=== PATIENT | female | born 1950 ===

== ENCOUNTER 2019-08-31 15:06 | Inpatient (IN) | payer MEDICARE, OTHER ==
[~2019-08-31] VITALS: Ht 177.8 cm; Wt 117.0 kg
--- NOTE | 2019-08-31 15:50 | NUR ---
Direct Admit Note SHAZIA BETANCUR admitted to [facility] unit as a direct admit per MD order. Patient oriented to CARRILLO OWENS RN primary RN, unit, room, bed, and unit policies regarding patient care and visiting hours. Patient weighed by bedscale and encouraged to call if they need something. All questions and concerns addressed, patient verbalized understanding. MD notified of patients arrival and admit orders received.
[2019-08-31 16:00] VITALS: BP 139/71
[2019-08-31] MEDS ORDERED: ONDANSETRON HCL 4 MG/2 ML VIAL IV PRN (16:15)
[2019-08-31] MEDS ORDERED: DEXTROSE (50%) 50ML SYRG IV PRN (16:15)
[2019-08-31] MEDS ORDERED: NITROGLYCERIN 0.4 MG SL TAB SL PRN (16:15)
[2019-08-31] MEDS ORDERED: MORPHINE SULF INJ 2 MG/ML SYRINGE 1ML IV PRN (16:15)
[2019-08-31] MEDS ORDERED: ALUM & MAG HYDROX-SIMETH LIQ(MAALOX) 30 ML PO PRN (16:15)
[2019-08-31 16:54] VITALS: BP 139/71
[2019-08-31] MEDS: ACCU-CHEK COMFORT CURVE STRIP VI SCH ×2 (17:00→22:05)
[2019-08-31] MEDS: InsuLIN REG 1unit/0.01ml Soln (100units/ml) SC SCH ×2 (17:00→22:00)
[2019-08-31 18:07] LABS: Basophils # (auto) 0 10 ^3/uL (0-0.2); Basophils % (auto) 0.4 % (0.0-2.0); Eosinophils # (auto) 0.1 10 ^3/uL (0-0.8); Eosinophils % (auto) 1.4 % (0.0-7.0); Hematocrit 38.2 % (36.0-46.0); Hemoglobin 12.8 g/dL (12.2-16.2); Lymphocytes # (auto) 1.5 10 ^3/uL (0.4-5.4); Lymphocytes % (auto) 24.6 % (10.0-50.0); Mean Corpuscular Hemoglobin 28.6 pg (28.0-32.0); Mean Corpuscular Hgb Conc. 33.5 g/dL (32.0-36.0); Mean Corpuscular Volume 85.4 fL (80.0-100.0); Monocytes # (auto) 0.7 10 ^3/uL (0-1.3); Monocytes % (auto) 10.9 % (0.0-12.0); Neutrophils # (auto) 3.9 10 ^3/uL (1.6-8.6); Neutrophils % (auto) 62.7 % (37.0-80.0); Nucleated Red Blood Cells % 0.1 %; Platelet Count (auto) 143 10^3/uL (140-450); Red Blood Cells 4.48 10^6/uL (4.0-5.20); Red Cell Distribution Width 13.7 % (11.8-14.3); White Blood Cell 6.3 10^3/uL (4.4-10.8)
[2019-08-31 18:25] LABS: Anion Gap 2 (5-15); Blood Urea Nitrogen 13 mg/dL (7-18); Calcium 8.7 mg/dL (8.5-10.1); Carbon Dioxide 28 mmol/L (21-32); Chloride 111 mmol/L (98-107); Glucose 102 mg/dL (74-106); Potassium 4.4 mmol/L (3.5-5.1); Sodium 141 mmol/L (136-145)
[2019-08-31 18:32] LABS: BUN/Creatinine Ratio 17.1; Cholesterol 111 mg/dL (< 200); GFR African American 97 mL/min; GFR Non-African American 80 mL/min; HDL Cholesterol 52 mg/dL (40-59); LDL Cholesterol 53 mg/dL (< 100); Triglycerides 119 mg/dL (< 150)
[2019-08-31] MEDS: D5W/SOD CHL 0.45% 1,000 ML IV SCH (18:58)
--- NOTE | 2019-08-31 20:07 | NUR ---
Call to pharmacy Patient states she is allergic to sulfa antibiotics. Updated allergies. Pharmacist aware.
--- NOTE | 2019-08-31 21:00 | NUR ---
Given report to Deep Martin, to assume the care.
--- NOTE | 2019-08-31 21:00 | NUR ---
ASSUMED CARE FROM RN MICK, PT. AWAKE, ALERT AND ORIENTED, WITH DRESSING ON RT., LEG ELEVATED ON PILLOW, NO C/O PAIN, NO IV, NO TELE MONITOR, IV TO BE INSERTED AND SEND FOR TELE MONITOR, TO CONTINUE PT. CARE, NO SOB
[2019-08-31 21:33] LABS: INR 0.99 (0.9-1.15)
[2019-08-31 21:48] VITALS: BP 126/68
[2019-08-31] MEDS: ATORVASTATIN 20 MG TAB PO SCH (22:04)
[2019-08-31] MEDS: HYDROcodone-ACET 5/325MG TAB PO PRN (22:05)
[2019-08-31] MEDS ORDERED: ceFAZolin 1GM/50ML 50 ML IV ONE (22:45)
[2019-09-01] MEDS: HYDROcodone-ACET 5/325MG TAB PO PRN ×4 (02:04→20:05)
[2019-09-01 05:00] VITALS: BP 120/59
[2019-09-01] MEDS ORDERED: ceFAZolin 1GM/50ML 50 ML IV SCH (06:00)
[2019-09-01] MEDS: InsuLIN REG 1unit/0.01ml Soln (100units/ml) SC SCH ×4 (06:02→21:01)
[2019-09-01] MEDS: ACCU-CHEK COMFORT CURVE STRIP VI SCH ×4 (06:02→21:02)
[2019-09-01 06:34] LABS: Basophils # (auto) 0 10 ^3/uL (0-0.2); Basophils % (auto) 0.5 % (0.0-2.0); Eosinophils # (auto) 0.1 10 ^3/uL (0-0.8); Eosinophils % (auto) 2.4 % (0.0-7.0); Hematocrit 36.5 % (36.0-46.0); Hemoglobin 12.4 g/dL (12.2-16.2); Lymphocytes # (auto) 1.6 10 ^3/uL (0.4-5.4); Mean Corpuscular Hemoglobin 28.5 pg (28.0-32.0); Mean Corpuscular Volume 83.8 fL (80.0-100.0); Monocytes # (auto) 0.7 10 ^3/uL (0-1.3); Monocytes % (auto) 12.1 % (0.0-12.0); Neutrophils # (auto) 3.4 10 ^3/uL (1.6-8.6); Platelet Count (auto) 150 10^3/uL (140-450); Red Blood Cells 4.36 10^6/uL (4.0-5.20); Red Cell Distribution Width 13.4 % (11.8-14.3); White Blood Cell 5.9 10^3/uL (4.4-10.8)
[2019-09-01 06:54] LABS: Albumin 3.1 g/dL (3.4-5.0); Calcium 8.3 mg/dL (8.5-10.1); Magnesium 2.2 mg/dL (1.6-2.6); Potassium 3.6 mmol/L (3.5-5.1)
[2019-09-01 06:55] LABS: Partial Thromboplastin Time 28.7 sec (23.64-32.05)
[2019-09-01 06:57] LABS: BUN/Creatinine Ratio 17.3; Bilirubin, Total 0.8 mg/dL (0.2-1.0); Phosphorus 3.2 mg/dL (2.5-4.90); Total Protein 6.5 g/dL (6.4-8.2)
[2019-09-01] MEDS: D5W/SOD CHL 0.45% 1,000 ML IV SCH (08:52)
--- NOTE | 2019-09-01 09:07 | NUR ---
TAKEN TO PRE OP VIA BED NO SIGNS OF DISTRESS.
[2019-09-01 09:21] VITALS: BP 121/66
[2019-09-01] MEDS ORDERED: LIDOCAINE 1% HCL (LOCAL ANESTH.) INJ 20ML MDV ONE (09:39)
[2019-09-01] MEDS ORDERED: ROPIVACAINE 0.5% (5MG/ML) 20ML AMPULE IJ ONE (09:40)
[2019-09-01] MEDS: LOSARTAN POTASSIUM 25 MG TAB PO SCH (09:49)
[2019-09-01] MEDS ORDERED: ceFAZolin 1GM/50ML 50 ML IV ONE ×2 (10:07→11:08)
[2019-09-01] MEDS ORDERED: fentaNYL CITRATE 100 MCG/2 ML VL ONE ×2 (11:20→12:01)
[2019-09-01] MEDS ORDERED: PROPOFOL 10 MG/ML 20 ML IV ONE (12:01)
--- NOTE | 2019-09-01 12:21 | NUR ---
OFF UNIT Addendum: 09/01/19 at 1221 by Bella Toro RN Amended: Links added.
--- NOTE | 2019-09-01 12:30 | NUR ---
OFF UNIT Addendum: 09/01/19 at 1230 by Belal Toro RN Amended: Links added.
[2019-09-01 13:00] VITALS: BP 130/80
[2019-09-01] MEDS ORDERED: HYDROmorphone HCL 2 MG/ML VL IV PRN (13:45)
[2019-09-01] MEDS ORDERED: ONDANSETRON HCL 4 MG/2 ML VIAL IV PRN (13:45)
[2019-09-01] MEDS ORDERED: ePHEDrine SULFATE 50 MG/ML AMP IV PRN (13:45)
[2019-09-01] MEDS ORDERED: hydrALAZINE HCL 20 MG/ML VL IV PRN (13:45)
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
--- NOTE | 2019-09-01 16:49 | NUR ---
D/C Planning Per consult for wheelchair. Faxed clinical information to [facility] requesting to deliver to bedside or front lobby. Per Cara with [facility] wheelchair will be deliver to bedside between 17:15-18:00.
[2019-09-01] MEDS: MORPHINE SULF INJ 2 MG/ML SYRINGE 1ML IV PRN ×2 (17:17→21:32)
[2019-09-01 17:20] VITALS: BP 150/73
[2019-09-01] MEDS: ceFAZolin 1GM/50ML 50 ML IV SCH (18:46)
--- NOTE | 2019-09-01 19:25 | NUR ---
ASSUMED CARE, PT.AWAKE, DRESSING ON RT. LEG DRY AND INTACT, NO C/O PAIN, NO SOB.
[2019-09-01] MEDS: ATORVASTATIN 20 MG TAB PO SCH (21:01)
[2019-09-01] MEDS: LORazepam 0.5 MG TAB PO PRN (21:39)
[2019-09-01 21:52] VITALS: BP 138/95
--- NOTE | 2019-09-01 22:30 | NUR ---
PT. T- 100.0, COOLING MEASURES APPLIED, BLANKET REMOVED, TO KEEP MONITOR.
--- NOTE | 2019-09-02 00:05 | NUR ---
PT. T- 101.7, COOLING MEASURES CONTINOUSLY APPLIED, BLANKET REMOVED, NORCO GIVEN PO ORDERED, TO KEEP MONITOR.
[2019-09-02] MEDS: ceFAZolin 1GM/50ML 50 ML IV SCH ×4 (00:10→17:40)
[2019-09-02] MEDS: HYDROcodone-ACET 5/325MG TAB PO PRN ×4 (00:11→12:50)
--- NOTE | 2019-09-02 01:01 | NUR ---
PT. T- 100.0, CONTINOUSLY COOLING MEASURES, TO KEEP MONITOR.
[2019-09-02] MEDS: D5W/SOD CHL 0.45% 1,000 ML IV SCH ×2 (01:32→18:16)
[2019-09-02] MEDS: MORPHINE SULF INJ 2 MG/ML SYRINGE 1ML IV PRN ×4 (01:34→14:36)
--- NOTE | 2019-09-02 04:58 | NUR ---
pt. t- 99.7, no c/o pain at this time, no sob.
[2019-09-02 05:00] VITALS: BP 122/59
[2019-09-02] MEDS: InsuLIN REG 1unit/0.01ml Soln (100units/ml) SC SCH ×4 (06:06→22:00)
[2019-09-02] MEDS: ACCU-CHEK COMFORT CURVE STRIP VI SCH ×4 (06:07→22:06)
[2019-09-02 07:18] LABS: Basophils # (auto) 0 10 ^3/uL (0-0.2); Basophils % (auto) 0.3 % (0.0-2.0); Eosinophils # (auto) 0.1 10 ^3/uL (0-0.8); Eosinophils % (auto) 1.1 % (0.0-7.0); Hematocrit 35.5 % (36.0-46.0); Hemoglobin 12.1 g/dL (12.2-16.2); Lymphocytes # (auto) 1.3 10 ^3/uL (0.4-5.4); Lymphocytes % (auto) 18.4 % (10.0-50.0); Mean Corpuscular Hemoglobin 28.7 pg (28.0-32.0); Mean Corpuscular Hgb Conc. 34.1 g/dL (32.0-36.0); Mean Corpuscular Volume 84.1 fL (80.0-100.0); Monocytes # (auto) 0.9 10 ^3/uL (0-1.3); Monocytes % (auto) 12.9 % (0.0-12.0); Neutrophils # (auto) 4.8 10 ^3/uL (1.6-8.6); Neutrophils % (auto) 67.3 % (37.0-80.0); Platelet Count (auto) 153 10^3/uL (140-450); Red Blood Cells 4.22 10^6/uL (4.0-5.20); Red Cell Distribution Width 13.6 % (11.8-14.3); White Blood Cell 7.2 10^3/uL (4.4-10.8)
[2019-09-02 07:37] LABS: Potassium 3.8 mmol/L (3.5-5.1)
[2019-09-02 07:46] LABS: BUN/Creatinine Ratio 9.8; Calcium 8.3 mg/dL (8.5-10.1)
[2019-09-02 08:00] VITALS: BP 128/58
[2019-09-02] MEDS: DOCUSATE SOD 100 MG CAP PO PRN (08:13)
[2019-09-02] MEDS: LOSARTAN POTASSIUM 25 MG TAB PO SCH (09:43)
[2019-09-02 13:00] VITALS: BP 134/50
[2019-09-02] MEDS: CARISOPRODOL 350 MG TAB PO SCH ×2 (13:57→22:05)
[2019-09-02] MEDS ORDERED: oxyCODONE HCL 5MG TAB PO PRN (15:30)
[2019-09-02] MEDS ORDERED: ACETAMINOPHEN 325 MG TAB PO PRN (15:30)
[2019-09-02] MEDS: oxyCODONE HCL 5MG TAB PO PRN ×2 (16:38→21:17)
[2019-09-02 17:30] VITALS: BP 109/58
[2019-09-02] MEDS: LORazepam 0.5 MG TAB PO PRN (20:00)
--- NOTE | 2019-09-02 21:10 | NUR ---
PAIN ASSESSMENT The patient c/o 10/09 right ankle pain and requested pain medication. Will treat with PRN Percocet and will reassess.
[2019-09-02 22:04] VITALS: BP 117/67
[2019-09-02] MEDS: ATORVASTATIN 20 MG TAB PO SCH (22:05)
--- NOTE | 2019-09-02 22:05 | NUR ---
Patient's temperature is 100.4 F. Will initiate cooling measures to control temperature.
--- NOTE | 2019-09-02 23:30 | NUR ---
TEMPERATURE REASSESSMENT The patient's temperature is 99.8 F. Will continue to monitor the patient's vitals.
[2019-09-03] MEDS: oxyCODONE HCL 5MG TAB PO PRN ×4 (01:20→22:36)
--- NOTE | 2019-09-03 04:15 | NUR ---
TEMPERATURE OF 100.2 F Patient has a temperature of 100.2 F. Patient refused cooling measures. Patient educated on the need to control temperature. Patient verbalized understanding and still refused cooling measures.
[2019-09-03 04:57] VITALS: BP_SYST 125; BP_SYST 92; BP_DIAS 55; BP_DIAS 66
[2019-09-03 05:42] LABS: Basophils # (auto) 0.1 10 ^3/uL (0-0.2); Eosinophils # (auto) 0.1 10 ^3/uL (0-0.8); Eosinophils % (auto) 1.4 % (0.0-7.0); Hematocrit 36.3 % (36.0-46.0); Hemoglobin 11.9 g/dL (12.2-16.2); Lymphocytes # (auto) 1.6 10 ^3/uL (0.4-5.4); Lymphocytes % (auto) 27.4 % (10.0-50.0); Mean Corpuscular Hemoglobin 27.6 pg (28.0-32.0); Mean Corpuscular Hgb Conc. 32.6 g/dL (32.0-36.0); Mean Corpuscular Volume 84.7 fL (80.0-100.0); Monocytes # (auto) 0.7 10 ^3/uL (0-1.3); Monocytes % (auto) 12.3 % (0.0-12.0); Neutrophils # (auto) 3.5 10 ^3/uL (1.6-8.6); Neutrophils % (auto) 57.9 % (37.0-80.0); Platelet Count (auto) 167 10^3/uL (140-450); Red Blood Cells 4.29 10^6/uL (4.0-5.20); Red Cell Distribution Width 13.6 % (11.8-14.3)
[2019-09-03] MEDS: CARISOPRODOL 350 MG TAB PO SCH ×3 (05:54→22:28)
[2019-09-03] MEDS: ceFAZolin 1GM/50ML 50 ML IV SCH ×2 (05:54)
[2019-09-03 06:12] LABS: Potassium 3.7 mmol/L (3.5-5.1)
[2019-09-03 06:17] LABS: BUN/Creatinine Ratio 13.6; Calcium 8.6 mg/dL (8.5-10.1)
[2019-09-03] MEDS: ACCU-CHEK COMFORT CURVE STRIP VI SCH ×4 (06:21→22:00)
[2019-09-03] MEDS: InsuLIN REG 1unit/0.01ml Soln (100units/ml) SC SCH ×4 (06:21→22:00)
[2019-09-03 09:00] VITALS: BP 111/65
[2019-09-03] MEDS: LOSARTAN POTASSIUM 25 MG TAB PO SCH (09:31)
[2019-09-03] MEDS ORDERED: CLINDAMYCIN HCL 150 MG CAP PO SCH (12:00)
[2019-09-03 13:00] VITALS: BP 133/84
[2019-09-03 17:00] VITALS: BP 124/67
[2019-09-03 22:10] VITALS: BP 122/71
[2019-09-03] MEDS: ATORVASTATIN 20 MG TAB PO SCH (22:29)
[2019-09-03] MEDS: DOCUSATE SOD 100 MG CAP PO PRN (22:32)
[2019-09-04] MEDS: oxyCODONE HCL 5MG TAB PO PRN ×5 (02:24→19:50)
[2019-09-04 05:00] VITALS: BP 113/62
[2019-09-04 05:17] VITALS: BP 113/62
[2019-09-04] MEDS: CARISOPRODOL 350 MG TAB PO SCH ×3 (06:12→17:56)
[2019-09-04] MEDS: ACCU-CHEK COMFORT CURVE STRIP VI SCH ×4 (06:13→21:36)
[2019-09-04] MEDS: InsuLIN REG 1unit/0.01ml Soln (100units/ml) SC SCH ×4 (06:21→21:37)
[2019-09-04 06:41] LABS: Basophils # (auto) 0 10 ^3/uL (0-0.2); Basophils % (auto) 0.3 % (0.0-2.0); Eosinophils # (auto) 0.1 10 ^3/uL (0-0.8); Eosinophils % (auto) 2.1 % (0.0-7.0); Hematocrit 34.5 % (36.0-46.0); Hemoglobin 11.7 g/dL (12.2-16.2); Lymphocytes # (auto) 1.5 10 ^3/uL (0.4-5.4); Lymphocytes % (auto) 29.7 % (10.0-50.0); Mean Corpuscular Hemoglobin 28.4 pg (28.0-32.0); Mean Corpuscular Hgb Conc. 33.9 g/dL (32.0-36.0); Mean Corpuscular Volume 83.6 fL (80.0-100.0); Monocytes # (auto) 0.6 10 ^3/uL (0-1.3); Monocytes % (auto) 12.4 % (0.0-12.0); Neutrophils # (auto) 2.9 10 ^3/uL (1.6-8.6); Neutrophils % (auto) 55.5 % (37.0-80.0); Nucleated Red Blood Cells % 0.1 %; Platelet Count (auto) 181 10^3/uL (140-450); Red Blood Cells 4.13 10^6/uL (4.0-5.20); Red Cell Distribution Width 13.3 % (11.8-14.3); White Blood Cell 5.2 10^3/uL (4.4-10.8)
[2019-09-04 06:53] LABS: Potassium 4.1 mmol/L (3.5-5.1)
[2019-09-04 06:59] LABS: BUN/Creatinine Ratio 16.7; Calcium 8.8 mg/dL (8.5-10.1)
[2019-09-04 09:00] VITALS: BP 113/61
[2019-09-04] MEDS: LOSARTAN POTASSIUM 25 MG TAB PO SCH (11:35)
[2019-09-04] MEDS: DOCUSATE SOD 100 MG CAP PO PRN ×2 (11:35→21:36)
[2019-09-04] MEDS: ASPirin-EC 81 mg tab PO SCH (11:53)
[2019-09-04 13:00] VITALS: BP 138/83
--- NOTE | 2019-09-04 16:23 | NUR ---
Nutrition Assessment Notes Please refer to link for full assessment notes. Est Energy needs: [id number] kcals (14-18 kcal/kgBW) Est Protein needs: 117-128 gms/day (1.0-1.1 gm/kgBW) Will continue to monitor and reassess prn. Addendum: 09/04/19 at [address] Amended: Links added.
[2019-09-04 17:10] VITALS: BP 108/48
--- NOTE | 2019-09-04 21:35 | NUR ---
TEMP / INSULIN REFUSAL PATIENT'S ORAL TEMP 100 F. PATIENT EDUCATED INDICATION ON COOLING MEASURES, PATIENT VERBALIZED UNDERSTANDING AND REFUSES. PATIENT'S BLOOD SUGAR 138. PATIENT EDUCATED IMPORTANCE ON REGULATING BLOOD SUGAR, PATIENT VERBALIZED UNDERSTANDING AND REFUSES. WILL CONTINUE TO MONITOR.
[2019-09-04] MEDS: ATORVASTATIN 20 MG TAB PO SCH (21:36)
[2019-09-04 21:39] VITALS: BP 105/59
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
[2019-09-05] MEDS: oxyCODONE HCL 5MG TAB PO PRN ×4 (00:04→14:08)
--- NOTE | 2019-09-05 00:20 | NUR ---
ANXIOLYTIC PRN PATIENT C/O ANXIETY AND REQUESTS ATIVAN. DISCUSSED WITH PATIENT SIDE EFFECTS AND POTENTIAL COMPOUNDED EFFECTS OF POLYPHARMACY, PATIENT VERBALIZED UNDERSTANDING AND IN AGREEMENT. BLOOD PRESSURE AT THIS TIME 122/65 MMHG ON LEFT ARM SEMI-FOWLERS POSITION, HEART RATE 84BPM, AND RESPIRATORY RATE 17 EVEN AND UNLABORED. SEE EMAR FOR ADMINISTRATION. WILL CONTINUE TO MONITOR.
[2019-09-05] MEDS: LORazepam 0.5 MG TAB PO PRN (00:25)
[2019-09-05] MEDS: CARISOPRODOL 350 MG TAB PO SCH ×2 (02:05→11:11)
[2019-09-05 05:00] VITALS: BP 126/73
[2019-09-05 05:38] LABS: Basophils # (auto) 0 10 ^3/uL (0-0.2); Basophils % (auto) 0.6 % (0.0-2.0); Eosinophils # (auto) 0.1 10 ^3/uL (0-0.8); Eosinophils % (auto) 2.7 % (0.0-7.0); Hematocrit 34.6 % (36.0-46.0); Hemoglobin 11.6 g/dL (12.2-16.2); Lymphocytes # (auto) 1.5 10 ^3/uL (0.4-5.4); Lymphocytes % (auto) 29.5 % (10.0-50.0); Mean Corpuscular Hemoglobin 28.1 pg (28.0-32.0); Mean Corpuscular Hgb Conc. 33.6 g/dL (32.0-36.0); Mean Corpuscular Volume 83.6 fL (80.0-100.0); Monocytes # (auto) 0.6 10 ^3/uL (0-1.3); Neutrophils # (auto) 2.8 10 ^3/uL (1.6-8.6); Neutrophils % (auto) 55.2 % (37.0-80.0); Nucleated Red Blood Cells % 0.1 %; Platelet Count (auto) 202 10^3/uL (140-450); Red Blood Cells 4.14 10^6/uL (4.0-5.20); Red Cell Distribution Width 13.6 % (11.8-14.3)
[2019-09-05 05:58] LABS: BUN/Creatinine Ratio 22.9; Calcium 8.9 mg/dL (8.5-10.1)
[2019-09-05] MEDS: InsuLIN REG 1unit/0.01ml Soln (100units/ml) SC SCH ×2 (06:12→11:30)
[2019-09-05] MEDS: ACCU-CHEK COMFORT CURVE STRIP VI SCH ×2 (06:12→11:30)
--- NOTE | 2019-09-05 07:15 | NUR ---
OPENING SHIFT NOTE ASSUMED CARE OF PATIENT FROM CABIN SERVICE AGENT RN SAVAGE. PATIENT IS AWAKE, ALERT, AND ORIENTED X4. PATIENT HAS NO S/S OF DISTRESS/SOB OR PAIN AT THIS TIME. INSTRUCTED PATIENT ON POC, PATIENT VERBALIZED UNDERSTANDING. BED IS IN LOWEST POSITION WITH SIDE RAILS RAISED X2, BED WHEELS LOCKED, AND CALL LIGHT IS WITHIN REACH. WILL CONTINUE TO MONITOR.
[2019-09-05 08:20] VITALS: BP 122/85
[2019-09-05 09:00] VITALS: BP 122/85
[2019-09-05] MEDS: ASPirin-EC 81 mg tab PO SCH (09:27)
[2019-09-05] MEDS: LOSARTAN POTASSIUM 25 MG TAB PO SCH (09:33)
[2019-09-05] MEDS: DOCUSATE SOD 100 MG CAP PO PRN (09:33)
--- NOTE | 2019-09-05 11:15 | NUR ---
MD BABIN AT BEDSIDE UPDATED MD ON PATIENT'S STATUS, MD IS AWARE AND WILL SPEAK WITH DR. ORTIZ REGARDING BOOT AND MD WILL ORDER ULTRASOUND FOR RIGHT LOWER EXTREMITY. WILL FOLLOW THROUGH WITH ORDERS.
[2019-09-05 12:53] VITALS: BP 124/65
--- NOTE | 2019-09-05 15:30 | NUR ---
SPOKE WITH DEREJE ([facility] [employer]) PER DEREJE SHE PROVIDED PATIENT WITH [employer] WHO PROVIDES WHEELCHAIR. PER DEREJE THE COMPANY IS NOT WILLING TO EXCHANGE WHEELCHAIR. PATIENT UNDERSTANDS AND CALLED [employer]. PATIENT STATES [employer] WILL EXCHANGE THE WHEELCHAIR AT HER HOUSE.
[2019-09-05 16:13] VITALS: BP 124/65
--- NOTE | 2019-09-05 16:49 | NUR ---
D/C Planning Regarding social service consult for extra wide chair with elevating right leg rest. Faxed clinical information this morning. Received a call back from Lilian with [employer] advising me patient did not meet criteria for a wide one due to weight. Placed call to Front Office Clerk Cara with [employer] advising her patient wheelchair is to small and she is needed a heavy duty wheelchair for home use. Per Cara Mcmullen they will have one in stock tomorrow morning and will do the exchange tomorrow at patient home. Informed patient and provided with [facility] information.
--- NOTE | 2019-09-05 17:00 | NUR ---
GAVE PATIENT DISCHARGE INSTRUCTIONS AND SCRIPT. PATIENT THREW SCRIPTS ON THE BED AND SAID THAT THESE ARE NOT THE MEDS SHE ASKED FOR AND THE DOCTORS ARE STUPID. INFORMED PATIENT I CAN CALL DOCTOR. PER PATIENT SHE DOES NOT WANT THE DOCTOR CALLED AND WANTS TO SPEAK TO BALL MACHINE OPERATOR. INFORMED BALL MACHINE OPERATOR. IV DISCONTINUED.
--- NOTE | 2019-09-05 17:10 | NUR ---
Discharge instructions given as ordered. Encourage to follow up with PMD as instructed. All questions and concerns addressed. Patient verbalized understanding. Medication reconciliation form completed and copy given to patient. Patient taken to vehicle via wheelchair with all personal belongings. No distress noted at time of departure.
== END 2019-09-05 17:10 | disposition home or self-care (01) | DRG 494 ==
LOC: WEST WING 15:40 → TELE-WESTW 21:09 → WEST WING 09-02 14:32
PROVIDERS: ADMIT Hospitalist; ATTEND Internal Medicine
PROC: 0QSG04Z Reposition Right Tibia with Internal Fixation Device, Open Approach (ICD-10-PCS; 2019-09-01)
PROC: 0SSF0ZZ Reposition Right Ankle Joint, Open Approach (ICD-10-PCS; 2019-09-01)
PROC: 0MQQ0ZZ Repair Right Ankle Bursa and Ligament, Open Approach (ICD-10-PCS; 2019-09-01)
PROC: 0QSJ04Z Reposition Right Fibula with Internal Fixation Device, Open Approach (ICD-10-PCS; principal; 2019-09-01 11:11)
DX: S82.841A Displaced bimalleolar fracture of right lower leg, initial encounter for closed fracture (principal); E11.9 Type 2 diabetes mellitus without complications; I10 Essential (primary) hypertension; E78.5 Hyperlipidemia, unspecified; M62.838 Other muscle spasm; S93.431A Sprain of tibiofibular ligament of right ankle, initial encounter; E66.9 Obesity, unspecified; W18.39XA Other fall on same level, initial encounter; Y93.89 Activity, other specified; Z88.2 Allergy status to sulfonamides; Y92.89 Other specified places as the place of occurrence of the external cause; Y99.8 Other external cause status; Z68.34 Body mass index [BMI] 34.0-34.9, adult
CPT/HCPCS: 36415; 71045; 73600; 76001; 80048; 80053; 80061; 82962; 83036; 83735; 84100; 84443; 84484; 85025; 85610; 85730; 86850; 86900; 86901; 93005; 93970; 97163; C1713; C1769; G0378; J0690; J1815; J2001; J2704

== ENCOUNTER 2021-01-16 21:02 | Emergency (ER) | payer MEDICARE, OTHER ==
[~2021-01-16] VITALS: Ht 177.8 cm; Wt 106.6 kg
[2021-01-16 21:33] LABS: Basophils # (auto) 0 10 ^3/uL (0-0.2); Basophils % (auto) 0.5 % (0.0-2.0); Eosinophils # (auto) 0.1 10 ^3/uL (0-0.8); Hematocrit 47.5 % (36.0-46.0); Hemoglobin 15.5 g/dL (12.2-16.2); Lymphocytes # (auto) 2.4 10 ^3/uL (0.4-5.4); Lymphocytes % (auto) 24.7 % (10.0-50.0); Mean Corpuscular Hemoglobin 27.4 pg (28.0-32.0); Mean Corpuscular Hgb Conc. 32.7 g/dL (32.0-36.0); Monocytes # (auto) 0.8 10 ^3/uL (0-1.3); Monocytes % (auto) 8.3 % (0.0-12.0); Neutrophils # (auto) 6.5 10 ^3/uL (1.6-8.6); Neutrophils % (auto) 65.5 % (37.0-80.0); Nucleated Red Blood Cells % 0.1 %; Red Blood Cells 5.66 10^6/uL (4.0-5.20); Red Cell Distribution Width 14.4 % (11.8-14.3); White Blood Cell 9.9 10^3/uL (4.4-10.8)
[2021-01-16 21:54] LABS: Calcium 9.4 mg/dL (8.5-10.1); Magnesium 2.6 mg/dL (1.6-2.6)
[2021-01-16 21:58] LABS: BUN/Creatinine Ratio 14.7; Bilirubin, Total 0.7 mg/dL (0.2-1.0); Total Protein 8.4 g/dL (6.4-8.2)
[2021-01-16 23:42] LABS: Amphetamine Screen, Urine NEGATIVE (NEGATIVE); Barbiturate Scree,Urine NEGATIVE (NEGATIVE); Benzodiazephine Screen, Urine NEGATIVE (NEGATIVE); Cannabinoid Screen, Urine NEGATIVE (NEGATIVE); Cocaine Screen, Urine NEGATIVE (NEGATIVE); Opiate Scree,Urine NEGATIVE (NEGATIVE); Phencyclidine Screen, Urine NEGATIVE (NEGATIVE)
[2021-01-16 23:51] LABS: Urine Bacteria NONE SEEN /hpf (None Seen); Urine Blood Negative /uL (Negative); Urine Hyaline Cast MANY /lpf (0 - 2); Urine Mucus FEW (None Seen); Urine Specific Gravity 1.018 (1.001-1.035); Urine WBC 25 /hpf (0 - 5)
[2021-01-17 02:53] VITALS: BP 120/67
== END 2021-01-17 03:09 | disposition home or self-care (01) ==
LOC: ER 21:04
DX: R00.0 Tachycardia, unspecified (principal); R00.2 Palpitations; E11.9 Type 2 diabetes mellitus without complications; E78.5 Hyperlipidemia, unspecified; Z86.73 Personal history of transient ischemic attack (TIA), and cerebral infarction without residual deficits; Z88.2 Allergy status to sulfonamides
CPT/HCPCS: 36415; 71045; 80053; 80307; 81001; 82550; 83735; 83880; 84443; 85025; 85379; 93005